=== PATIENT | female | born 1980 | race Two or more races ===

== ENCOUNTER 2017-08-25 18:36 | Emergency (ER) | payer OTHER ==
[~2017-08-25] VITALS: Ht 157.5 cm; Wt 80.7 kg
--- NOTE | 2017-08-25 19:30 | NUR ---
PT BB SELF FROM HOME C/C OF NUMBNESS TO BACK OF HEAD W/ RT ARM WEKANESS X 2 DAYS. PT STATES THE S/S BEGAN ON THURSDAY AT 1500 WITH FACIAL NUMBNESS, DIZZINESS, AND DIFFICULTY WITH SPEECH. UPON ARIVAL PT IS AAOX4 WITH NORMAL SPEECH. VSS. SKIN WNL. NO S/S OF ACUTE DISTRESS NOTED. RESP EVEN AND UNLABORED. PT AMBULATED WITH STEADY GAIT NOTED. PT STATES +N, -V/D. PT PLACED ON BUSINESS ACCOUNT EXECUTIVE AND POX. PT SAFETY AND COMFORT MEASURES IN PLACE. PT'S FAMILY/FRIEND BEDSIDE. WILL CONTINUE TO MONITOR PT
[2017-08-25 19:42] LABS: BASOPHILS # (AUTO) 0.1 /CMM (0.0-0.2); BASOPHILS % (AUTO) 0.5 % (0.0-2.0); EOSINOPHILS % (AUTO) 0.6 % (0.0-6.0); HEMATOCRIT 41 % (33-45); HEMOGLOBIN 13.7 g/dL (11.5-14.8); LYMPHOCYTES # (AUTO) 2.1 /CMM (0.8-4.8); LYMPHOCYTES % (AUTO) 18.7 % (20.0-44.0); MEAN CORPUSCULAR HGB CONC 34 g/dl (31.0-36.0); MEAN CORPUSCULAR VOLUME 83 fL (82-100); MONOCYTES # (AUTO) 0.4 /CMM (0.1-1.30); MONOCYTES % (AUTO) 3.1 % (2.0-12.0); NEUTROPHILS # (AUTO) 8.8 /CMM (1.8-8.9); NEUTROPHILS % (AUTO) 77.1 % (43.0-81.0); PLATELET COUNT (AUTO) 403 /CMM (150-450); RDW COEFFICIENT OF VARIATION 12.6 (11.5-15.0); WHITE BLOOD COUNT (AUTO) 11.5 K/uL (4.3-11.0)
[2017-08-25 19:55] LABS: CALCIUM, SERUM 8.9 mg/dL (8.5-10.1); CREATININE 0.8 mg/dL (0.6-1.3); POTASSIUM 3.7 mmol/L (3.5-5.1)
[2017-08-25 19:57] LABS: INR 0.96 (0.85-1.15)
[2017-08-25 20:00] LABS: ALBUMIN 3.5 g/dL (3.4-5.0); BILIRUBIN,DIRECT 0.2 mg/dL (0.0-0.2); BILIRUBIN,TOTAL 0.8 mg/dL (0.2-1.0); TOTAL PROTEIN, SERUM 7.6 g/dL (6.4-8.2)
[2017-08-25 20:02] LABS: TROPONIN I 0.019 ng/mL (0.00-0.056)
--- NOTE | 2017-08-25 20:51 | NUR ---
JANICE [phone]; DERRICK PERDOMO [facility]; [facility] 124-B [id number] FOR SAM; DR. ORR ACCEPTING AT [id number]; [phone] [facility]
--- NOTE | 2017-08-25 21:23 | NUR ---
REPORT GIVEN TO LOIS VARGAS FOR JOSE
[2017-08-25 21:24] VITALS: BP 134/86
--- NOTE | 2017-08-25 21:24 | NUR ---
AMBULNZ CREW BEDSIDE TO TRANFER PT. REPORT GIVEN TO EMS CREW FOR JOSE. VSS UPON DISCHARGE.
== END 2017-08-25 21:30 | disposition short-term general hospital (02) ==
LOC: ER 18:37
DX: G45.9 Transient cerebral ischemic attack, unspecified (principal); F17.200 Nicotine dependence, unspecified, uncomplicated
CPT/HCPCS: 36415; 70450; 71045; 80048; 80061; 80076; 84484; 85025; 85730; 93005; 99285; A4606; Z7610

== ENCOUNTER 2018-12-07 20:35 | Emergency (ER) | payer OTHER ==
[~2018-12-07] VITALS: Ht 157.5 cm; Wt 86.6 kg
[2018-12-07] MEDS ORDERED: ACETAMINOPHEN ES 500 MG TABLET ONE (20:55)
--- NOTE | 2018-12-07 20:59 | NUR ---
BIBSELF WITH PARTNER FROM HOME. TO ER BED 9. AAOX4. NO RESP DISTRESS NOTED. AMBULATORY. PT CAN IN FOR DIZZYNESS WHEN STANDING AND FLU LIKE SYMPTONS X 1WEEK. PT REPORTS THAT SHE FEELS DIZZY WHEN SHE SATNDS UP FROM A STIING POSITION AND FEELS TINGLING ON HER FACE AND HANDS. PT REPORT RUNNY NOSE, SNEEZING AND NON PRODUCTIVE COUGH. PT ALSO REPORTS HEAD AND EAR PRESSURE. NO NASUEA, NO PAIN UPON URINATION. MD AT BEDSIDE FOR EVAL. ORDERS RECEIVED, NOTED AND CARRIED OUT. EKG DONE AT BEDSIDE. PT GIVEN A PITCHER OF WATER PER MD ORDER.
[2018-12-07] MEDS ORDERED: ACETAMINOPHEN ES 500 MG TABLET PO ONE (21:00)
--- NOTE | 2018-12-07 21:25 | NUR ---
Patient discharged to home in stable condition. Written and verbal after care instructions given. Patient verbalizes understanding of instruction. Pt ambulatory with a steady gait
[2018-12-07 21:30] VITALS: BP 143/90
== END 2018-12-07 21:30 | disposition home or self-care (01) ==
LOC: ER 20:43
DX: J06.9 Acute upper respiratory infection, unspecified (principal); R42 Dizziness and giddiness; F17.200 Nicotine dependence, unspecified, uncomplicated